=== PATIENT | male | born 1990 | race Caucasian/White ===

== ENCOUNTER 2020-05-07 18:25 | Emergency (ER) | payer OTHER ==
[~2020-05-07] VITALS: Ht 177.8 cm; Wt 88.1 kg
[2020-05-07 18:27] VITALS: BP 122/81
--- NOTE | 2020-05-07 18:40 | NUR ---
Patient presents to ER c/o intermittent HAs which started Wednesday. HAs starte with dots and blurry spots. No hx of HAs. Patient is in NAD. Respirations even and unlabored.
[2020-05-07] MEDS ORDERED: DEXAMETHASONE 4 MG TABLET ONE (18:48)
[2020-05-07] MEDS ORDERED: DEXAMETHASONE 4 MG TABLET PO ONE (19:00)
== END 2020-05-07 19:19 | disposition home or self-care (01) ==
LOC: ED 19:10
DX: G43.101 Migraine with aura, not intractable, with status migrainosus (principal); H53.8 Other visual disturbances
CPT/HCPCS: 99283